=== PATIENT | female | born 1950 | race Caucasian/White ===

== ENCOUNTER 2019-10-14 00:40 | Outpatient (CLI) | payer OTHER, SELFPAY ==
[2019-10-14 18:42] LABS: SARS-CoV-2 RNA PCR Negative
== END 2019-10-14 00:41 | disposition home or self-care (01) ==
LOC: ANHCOVIDDT 00:40
PROVIDERS: PCP Family Medicine; Visit Provider Internal Medicine Gastroenterology
DX: Z01.812 Encounter for preprocedural laboratory examination (principal); Z20.828 Contact with and (suspected) exposure to other viral communicable diseases
CPT/HCPCS: 87635; C9803; U0003

== ENCOUNTER 2019-10-16 01:29 | Day surgery (SDC) | payer OTHER, SELFPAY ==
[2019-10-07 15:08] VITALS: BMI 15.4
--- NOTE | 2019-10-16 08:02 | WPDANESEPPF ---
Anes - Initial Pre Proc Eval Procedure: Operation Date: 10/16/19 08:30 Proposed Procedures p Screening Colonoscopy - Fernando Jimenez MD Date/Time: 10/16/19 08:02 Surgeon: Fernando Jimenez MD Pre Op Diagnosis: neoplasm screening Patient Data Age: 69 Gender: F Height: 5 ft 5 in Weight: 42 kg Allergies Allergy/AdvReac Type Severity Reaction Status Date / Time lisinopril Allergy Unknown Headache Verified 10/16/19 07:48 Home Medications Medication Instructions Recorded Confirmed Type fluticasone propionate 50 1 spray NASAL DAILY 01/06/19 10/16/19 History mcg/actuation nasal spray,suspension losartan 25 mg tablet 25 mg PO DAILY #90 tablet 03/19/19 10/16/19 Rx albuterol sulfate 90 mcg/actuation 2 puff INHALATION Q4-6H PRN #8.5 gm 04/13/19 10/16/19 Rx aerosol inhaler fluticasone furoate 100 1 inhalation INHALATION DAILY #60 08/18/19 10/16/19 Rx mcg-vilanterol 25 mcg/dose each inhalation powder Patient hx anesthesia problems: none Family hx anesthesia problems: none PMFSH Past Medical History Medical History (Updated 07/21/19 @ 10:07 by Lakia Miller PA-C) COPD (chronic obstructive pulmonary disease) HLD (hyperlipidemia) HTN (hypertension), benign Family History Family History (Updated 11/11/17 @ 11:53 by DOCTOR UNKNOWN) Father Family history of suicide Mother Cerebrovascular accident Family history of malignant neoplasm of stomach Sibling Family history of coronary artery disease Acute myocardial infarction Social History Social History (Updated 01/06/19 @ 11:14 by Adelina Shrestha) Smoking status: Former smoker Tobacco type: cigarettes Second hand tobacco smoke exposure: No Smoking end date: 03/04/02 Alcohol intake: current Drinks per week: 10 Substance use: never Substance use type: does not use Gender identity (if verbalized by the patient): Female Anes - Eval Final PreProcedure Day of Procedure 10/16/19 08:02 Patient weight: normal Heart: regular rate and rhythm Lungs: clear to auscultation Airway: Mallampati scale class II Neurological: alert and oriented Last oral intake: >/= 8 hours ASA classification: II Emergent: no Anesthetic plan: proceed Anesthesia type and monitoring: general and standard monitoring Informed Consent: The patient's anesthetic plan and its attendant risks and benefits were discussed with the patient/family/POA. Questions were solicited and answers provided to the satisfaction of the patient/family/POA.
[2019-10-16] MEDS: LACTATED RINGERS 1,000 ML 150 ML IV CONT (08:09)
[2019-10-16 08:10] VITALS: BP 131/98; PULSE 103; RESP 20; TEMP 36.8; O2SAT 95
--- NOTE | 2019-10-16 08:22 | PM.HPGS ---
History of Present Illness History of Present Illness Consent: Risks, benefits, and alternatives have been discussed and questions answered. Patient agrees to proceed with procedure. Chief complaint: neoplasm screening Narrative: Jazmin Askew is a 69 year old female with lower abdominal pain and positive cologuard, never had colonoscopy. Review of Systems Constitutional: Constitutional: Denies headache(s) and Denies weakness Eyes: Eyes: Denies blurry vision ENT: Reports Normal hearing present, Denies headache(s) and Denies neck pain Cardiovascular: Cardiovascular: Denies chest pain and Denies dyspnea Respiratory: Respiratory: Denies dyspnea Gastrointestinal: Gastrointestinal: Reports no additional gastrointestinal complaints Genitourinary: Genitourinary: Denies dysuria Musculoskeletal: Musculoskeletal: Denies neck pain Integumentary/Breasts: Skin/Breast: Denies dry skin Neurologic: Reports Normal hearing present, Denies headache(s) and Denies weakness Psychiatric: Psychiatric: Denies anxiety Endocrine: Endocrine: Denies change in body appearance Hematologic/Lymphatic: Hematologic/Lymphatic: Denies easy bleeding Allergic/Immunologic: Allergic/Immunologic: Denies urticaria PMFSH Past Medical History Medical History (Updated 10/16/19 @ 08:23 by Fernando Jimenez MD) COPD (chronic obstructive pulmonary disease) HLD (hyperlipidemia) HTN (hypertension), benign Lower abdominal pain Positive colorectal cancer screening using Cologuard test Family History Family History (Updated 11/11/17 @ 11:53 by DOCTOR UNKNOWN) Father Family history of suicide Mother Cerebrovascular accident Family history of malignant neoplasm of stomach Sibling Family history of coronary artery disease Acute myocardial infarction Social History Social History (Updated 01/06/19 @ 11:14 by Adelina Shrestha) Smoking status: Former smoker Tobacco type: cigarettes Second hand tobacco smoke exposure: No Smoking end date: 03/04/02 Alcohol intake: current Drinks per week: 10 Substance use: never Substance use type: does not use Gender identity (if verbalized by the patient): Female Meds Home Medications and Allergies Home Medications Medication Instructions Recorded Confirmed Type fluticasone propionate 50 1 spray NASAL DAILY 01/06/19 10/16/19 History mcg/actuation nasal spray,suspension losartan 25 mg tablet 25 mg PO DAILY #90 tablet 03/19/19 10/16/19 Rx albuterol sulfate 90 mcg/actuation 2 puff INHALATION Q4-6H PRN #8.5 gm 04/13/19 10/16/19 Rx aerosol inhaler fluticasone furoate 100 1 inhalation INHALATION DAILY #60 08/18/19 10/16/19 Rx mcg-vilanterol 25 mcg/dose each inhalation powder Allergies Allergy/AdvReac Type Severity Reaction Status Date / Time lisinopril Allergy Unknown Headache Verified 10/16/19 07:48 Vital Signs Vital Signs - 24 hr 10/16/19 08:10 Temperature 98.3 F Pulse Rate 103 H Respiratory Rate 20 Blood Pressure 131/98 H Pulse Oximetry 95 Exam Const: General: comfortable and no acute distress HENMT: General nose exam: Normal nares present Eyes: General: appearance normal, both eyes and all related structures Neck: Neck: no JVD Resp: Auscultation: clear to auscultation bilaterally Cardio: Rate: regular rate Rhythm: regular rhythm GI: Inspection: non-distended GI Palp: Yes Soft to palpation Skin: General skin exam: normal color Neuro: General: gait normal Speech: normal speech Extrem: General: normal to inspection Psych: Mental Status: mental status grossly normal Assessment and Plan Assessment and plan (1) Positive colorectal cancer screening using Cologuard test: Code(s): R19.5 - Other fecal abnormalities Status: Acute Assessment and Plan: will proceed with colonoscopy (2) Lower abdominal pain: Code(s): R10.30 - Lower abdominal pain, unspecified
--- NOTE | 2019-10-16 08:40 | SUR.OPER ---
NS INJECTED INTO ASCENDING COLON TISSUE LOT#[id number] 6 ML USED RESOLUTION CLIPS LOT# [id number] EXP 08/10/22 APPLIED TO POLYPECTOMY AREA IN ASCENDING COLON TIMES TWO
--- NOTE | 2019-10-16 08:52 | SUR.OPER ---
NS INJECTED INTO DISTAL ASCENDING COLON WITH 3 ML LOT # [id number]
[2019-10-16 09:13] VITALS: BP 104/58; PULSE 91; RESP 25; O2SAT 93
[2019-10-16 09:23] VITALS: BP 111/68; PULSE 85; RESP 25; O2SAT 97
[2019-10-16 09:33] VITALS: BP 118/73; PULSE 81; RESP 15; O2SAT 99
== END 2019-10-16 09:46 | disposition home or self-care (01) ==
PROVIDERS: PCP Family Medicine; Visit Provider Internal Medicine Gastroenterology
PROC: 0DJD8ZZ Inspection of Lower Intestinal Tract, Via Natural or Artificial Opening Endoscopic (ICD-10-PCS; CPT 45378; principal; 2019-10-16 08:30)
DX: Z12.11 Encounter for screening for malignant neoplasm of colon (principal); D12.2 Benign neoplasm of ascending colon; K63.5 Polyp of colon; K57.30 Diverticulosis of large intestine without perforation or abscess without bleeding; K64.8 Other hemorrhoids; I10 Essential (primary) hypertension; J44.9 Chronic obstructive pulmonary disease, unspecified; E78.5 Hyperlipidemia, unspecified; Z87.891 Personal history of nicotine dependence; Z79.51 Long term (current) use of inhaled steroids; Z85.72 Personal history of non-Hodgkin lymphomas
CPT/HCPCS: 45385; 45381; 88305; J2704; J7120

== ENCOUNTER 2019-10-23 07:34 | Outpatient (CLI) | payer OTHER, SELFPAY ==
--- NOTE | ~2019-10-23 | US_ITS ---
EXAMINATION: US right upper quadrant DATE: 10/23/2019 08:19 INDICATION: Abdominal pain and weight loss TECHNIQUE: Multiple grayscale and Doppler ultrasound images of the abdomen were obtained. COMPARISON: None available FINDINGS: Bowel gas obscures visualization of the pancreas. The visualized portions of the pancreas a re unremarkable. The liver is normal with normal echogenicity and echotexture. No surface nodularity. Normal hepatopetal flow in the main portal vein. The gallbladder is normal with no abnormal wall thi ckening, pericholecystic fluid or stones. The common bile duct measures 7 mm, within normal limits fo r age. There was no sonographic Duggan sign. IMPRESSION: 1. Normal sonographic study of the gallbladder. Reviewed, dictated and finalized at location A.
== END 2019-10-23 07:35 | disposition home or self-care (01) ==
PROVIDERS: PCP Family Medicine; Visit Provider Family Medicine
DX: R10.9 Unspecified abdominal pain (principal)
CPT/HCPCS: 76705

== ENCOUNTER 2020-05-30 14:19 | Outpatient (CLI) | payer OTHER, SELFPAY ==
--- NOTE | ~2020-05-30 | XR_ITS ---
XR chest 2V 05/30/2020 14:42 Indication: Shortness of breath Procedure: PA and lateral views of the chest Comparison: No prior studies for comparison. Findings: Heart size normal. No focal air space disease, pulmonary edema, pleural effusion or suspect ed pneumothorax. The lungs are hyperinflated which is consistent with, but not diagnostic of chronic obstructive pulmonary disease. There is scarring in the right upper lobe. Impression: 1: No acute cardiopulmonary disease. Reviewed, dictated and finalized at location B. Impression: 1: No acute cardiopulmonary disease.
== END 2020-05-30 14:20 | disposition home or self-care (01) ==
PROVIDERS: PCP Family Medicine; Visit Provider Nurse Practitioner Family
DX: R06.02 Shortness of breath (principal)
CPT/HCPCS: 71046

== ENCOUNTER 2020-09-22 15:26 | Outpatient (CLI) | payer OTHER, SELFPAY ==
--- NOTE | ~2020-09-22 | MM_ITS ---
EXAMINATION: MM screening lexy BI w travis HISTORY: Screening TECHNIQUE: Craniocaudal and mediolateral oblique 3-D tomosynthesis images were obtained and synthetic 2-D images were generated. CAD analysis was submitted and interpreted. COMPARISON: Comparison to multiple prior studies sequentially, with oldest reviewed study dated 06/13. BREAST PARENCHYMAL COMPOSITION: The breasts are heterogeneously dense, which may obscure small masses . FINDINGS: Stable right breast asymmetry and bilateral breast calcifications. There is no evidence of suspicious mass, calcification, or architectural distortion to suggest malignancy in either breast. T here has been no suspicious interval change. IMPRESSION: 1. No mammographic evidence of malignancy. 2. Recommend routine screening mammography in one year. BI-RADS Category 2: Benign finding(s). Reviewed, dictated and finalized at location A.
== END 2020-09-22 15:27 | disposition home or self-care (01) ==
LOC: ANHIMG 15:29
PROVIDERS: PCP Family Medicine; Visit Provider Family Medicine
DX: Z12.31 Encounter for screening mammogram for malignant neoplasm of breast (principal)
CPT/HCPCS: 77063; 77067

== ENCOUNTER 2022-01-30 07:00 | Outpatient (NON) | payer OTHER, SELFPAY | END 2022-01-30 07:01 | disposition home or self-care (01) | PROVIDERS: PCP Family Medicine; Visit Provider Nurse Practitioner | DX: L72.0 Epidermal cyst (principal) | CPT/HCPCS: 88305 ==

== ENCOUNTER 2023-07-25 13:45 | Outpatient (CLI) | payer MEDICARE, SELFPAY ==
--- NOTE | ~2023-07-25 | XR_ITS ---
XR ankle RT min 3V DATE: 07/25/2023 14:12 INDICATION: Right ankle pain TECHNIQUE: 4 views COMPARISON: None FINDINGS: There is mild lateral soft tissue swelling of the ankle. No fracture or dislocation of the ankle or disruption of the ankle mortise. No periosteal reaction or bone destruction. IMPRESSION: Mild lateral soft tissue swelling; no significant bony abnormality Reviewed, dictated and finalized at location B.
== END 2023-07-25 13:46 | disposition home or self-care (01) ==
LOC: ANHIMG 13:48
PROVIDERS: PCP Family Medicine; Visit Provider Physician Assistant Medical
DX: M25.471 Effusion, right ankle (principal)
CPT/HCPCS: 73610

== ENCOUNTER 2023-10-28 07:56 | Outpatient (CLI) | payer MEDICARE, SELFPAY ==
--- NOTE | ~2023-10-28 | DEXA_ITS ---
Bone Density Report Name: ALETA HORTON Age: 73 Sex: Female Ethnicity: White Date of : 1950 Indication: osteopenia; asthma or emphysema; Referring Provider: DAVID CADET Study: Bone densitometry was performed. Exam Date: October 28, 2023 Accession number: [id number] Bone Density: Region BMD T-score Z-score Classification AP Spine(L1-L4) 0.768 -2.5 -0.2 Osteoporosis Femoral Neck (Left) 0.638 -1.9 0.2 Osteopenia Total Hip (Left) 0.625 -2.6 -0.8 Osteoporosis Femoral Neck (Right) 0.623 -2.0 0.0 Osteopenia Total Hip (Right) 0.607 -2.7 -1.0 Osteoporosis Total Hip Mean 0.616 -2.7 -0.9 Osteoporosis World Health Organization criteria for BMD impression classify patients as: Normal (T-score at or above -1.0), Osteopenia (T-score between -1.0 and -2.5), or Osteoporosis (T-score at or below -2.5). 10-year Fracture Risk: FRAX not reported because: Some T-score for Spine Total or Hip Total or Femoral Neck at or below -2.5 Previous Exams: Region Exam Age BMD T-score BMD Change BMD Change Date g/cm2 vs Baseline vs Previous AP Spine (L1-L4) 10/28/2023 73 0.768 -2.5 -0.015 (-1.9%) -0.013 (-1.7%) 12/22/2018 68 0.781 -2.4 -0.002 (-0.2%) -0.002 (-0.2%) 06/08/2016 66 0.783 -2.4 Total Hip(Left) 10/28/2023 73 0.625 -2.6 -0.058 (-8.5%) -0.088 (-12.4% 12/22/2018 68 0.713 -1.9 0.030 (4.4%)* 0.030 (4.4%)* 06/08/2016 66 0.683 -2.1 Total Hip(Right) 10/28/2023 73 0.607 -2.7 -0.018 (-2.9%) -0.110 (-15.3% 12/22/2018 68 0.717 -1.8 0.092 (14.8%)* 0.092 (14.8%)* 06/08/2016 66 0.624 -2.6 *Denotes significance at 95% confidence level, LSC for AP Spine = 0.022 g/cm2, LSC for Total Hip = 0.027 g/cm2 Clinical Information Provided by Patient: Has the following medical conditions: Asthma or Emphysema Patient maximum height was 65.0 Menopause Age: 52 Drinks caffeinated beverages Onset of menses at age 13 Number of children 3 Impression: The patient has osteoporosis, based on the Right Total Hip T-score. The BMD for the Total Hip(Left) decreased, changing by -12.4% since the last DXA exam. The BMD for the Total Hip(Right) decreased, changing by -15.3% since the last DXA exam. Discussion: INCREASED RISK OF FRACTURE. BONE DENSITY IS UNDESIRABLY LOW AT ONE OR MORE SKELETAL SITES, CONSISTENT WITH POSTMENOPAUSAL OSTEOPOROSIS. This patient's lowest T-score meets the World Health Organization's (WHO) criteria for osteo
--- NOTE | ~2023-10-28 | MM_ITS ---
EXAMINATION: MM screening lexy BI w travis HISTORY: Screening TECHNIQUE: Craniocaudal and mediolateral oblique 3-D tomosynthesis images were obtained and synthetic 2-D images were generated. CAD analysis was submitted and interpreted. COMPARISON: Comparison to multiple prior studies sequentially, with oldest reviewed study dated 01/02. BREAST PARENCHYMAL COMPOSITION: Dense: The breasts are heterogeneously dense, which may obscure small masses FINDINGS: Bilateral breast asymmetries are stable. No significant new suspicious masses, calcificatio ns or architectural distortion in either breast to suggest malignancy. IMPRESSION: 1. No mammographic evidence of malignancy. 2. Recommend routine screening mammography in one year. BI-RADS Category 2: Benign finding(s). Reviewed, dictated and finalized at location B.
== END 2023-10-28 07:57 | disposition home or self-care (01) ==
LOC: ANHIMG 08:00
PROVIDERS: PCP Family Medicine; Visit Provider Family Medicine
DX: Z12.31 Encounter for screening mammogram for malignant neoplasm of breast (principal); M81.0 Age-related osteoporosis without current pathological fracture; M85.89 Other specified disorders of bone density and structure, multiple sites; Z78.0 Asymptomatic menopausal state
CPT/HCPCS: 77063; 77067; 77080

== ENCOUNTER 2024-04-08 10:08 | Outpatient (CLI) | payer MEDICARE, SELFPAY ==
--- NOTE | ~2024-04-08 | XR_ITS ---
Cervical Spine: AP, lateral, open-mouth views Clinical History: Pain Findings: No acute fracture seen. There is grade 1 retrolisthesis of C5 over C6. There is moderate to advanced degenerative disc narrowing at C5-C6 and C6-C7. There is moderate to advanced facet arthrop athy in the cervical spine. Pre-vertebral soft tissues are unremarkable. Impression: Degenerative spondylosis, as detailed above. Reviewed, dictated and finalized at location M. AT[facility] LEAD Impression: Degenerative spondylosis, as detailed above.
--- OUTSIDE RECORDS SUMMARY | 2024-04-08 11:13 | XMS_ITS | Clinical Summary ---
Author Organization [facility] Address [address] [place] [id number] Care Team Providers Care Solar Installation Technician Name Role Phone Lb Munoz MD Primary Care Provider Allergies Active Allergy Reactions Criticality Noted Date Comments Aspirin 11/28/1994 Ibuprofen 11/28/1994 Immunizations Immunization Administration Dates Next Due Covid-19, Mrna, Lnp-s, Pf, 30 Mcg/0.3 Ml Dose (P vladislav) 12/17/2020 Social History Tobacco Use Types Packs/Day Years Used Date Smoking Tobacco: Never Assessed Comments Unknown Sex and Gender Information Value Date Recorded Sex Assigned at Not on file 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 Gender Identity Not on file Sexual Orientation Not on file Plan of Treatment Health Maintenance Due Date Last Done Comments DEXA Bone Density 1950 Hepatitis C Virus (HCV) Screening 1950 TdaP Immunization 1950 Colonoscopy 1994 Colorectal Cancer Screening 1994 Cologuard 1999 Immunochemical Fecal Occult Blood 1999 Mammogram 1999 Zoster Immunization (1 of 2) 1999 Pneumococcal Immunization (50+ years) (3 of 3 - PCV20 or PCV21) 01/06/2023 01/06/2018, 02/20/2012 Influenza Immunization (#1) 2023 100 10/2018, 12/10/2017, 12/11/2016, Additional history exists SARS-COV-2 Immunization ( season) 2023 12/17/2020, 06/15/2020, 05/18/2020 Respiratory Syncytial Virus (RSV) Immunization (Adult) (1 - 1-dose 75+ series) 2024 Pneumococcal Immunization Combined Discontinued 01/06/2018, 02/20/2012 Hepatitis B Immunization Aged Out No longer eligible based on patient's age to complete this topic Meningococcal Immunization (ACWY) Aged Out No longer eligible based on patient's age to complete this topic Rotavirus Immunization Aged Out No lo nger eligible based on patient's age to complete this topic Care Teams Solar Installation Technician Relationship Specialty Start Date End Date Lb Munoz MD [address] [place] [address] PCP - General Family Medicine 11/22/17
--- OUTSIDE RECORDS SUMMARY | 2024-04-08 11:13 | XMS_ITS | Clinical Summary ---
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
--- OUTSIDE RECORDS SUMMARY | 2024-04-08 11:13 | XMS_ITS | Referral Summary ---
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
== END 2024-04-08 10:09 | disposition home or self-care (01) ==
PROVIDERS: PCP Family Medicine; Visit Provider Physician Assistant Medical
DX: M47.812 Spondylosis without myelopathy or radiculopathy, cervical region (principal)
CPT/HCPCS: 72040

== ENCOUNTER 2024-12-02 08:31 | Outpatient (CLI) | payer MEDICARE, SELFPAY ==
--- OUTSIDE RECORDS SUMMARY | 2024-12-02 08:44 | XMS_ITS | Clinical Summary ---
Author Organization [facility] Address [address] [place] [address] Care Team Providers Care Commercial Hvac Service Technician Name Role Phone Lb Munoz MD Primary Care Provider Allergies Active Allergy Reactions Criticality Noted Date Comments Aspirin 11/28/1994 Ibuprofen 11/28/1994 Immunizations Immunization Administration Dates Next Due Covid-19, Mrna, Lnp-s, Pf, 30 Mcg/0.3 Ml Dose (P priyazer) 12/17/2020 Social History Tobacco Use Types Packs/Day Years Used Date Smoking Tobacco: Never Assessed Comments Unknown Sex and Gender Information Value Date Recorded Sex Assigned at Not on file 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 Gender Identity Not on file Sexual Orientation Not on file Plan of Treatment Health Maintenance Due Date Last Done Comments Hepatitis C Virus (HCV) Screening 1950 TdaP Immunization 1950 Cologuard 1994 Colonoscopy 1994 Colorectal Cancer Screening 1994 Immunochemical Fecal Occult Blood 1994 Zoster Immunization (1 of 2) 1999 Pneumococcal Immunization (50+ years) (3 of 3 - PCV20 or PCV21) 01/06/2023 01/06/2018, 02/20/2012 Respiratory Syncytial Virus (RSV) Immunization (Adult) (1 - 1-dose 75+ series) 2024 Influenza Immunization (#1) 2024 10/0 10/2018, 12/10/2017, 12/11/2016, Additional history exists SARS-COV-2 Immunization (2024- season) 2024 12/17/2020, 06/15/2020, 05/18/2020 Pneumococcal Immunization Combined Discontinued 01/06/2018, 02/20/2012 Hepatitis B Immunization Aged Out No longer eligible based on patient's age to complete this topic Human Papillomavirus (HPV) Immunization Aged Out No longer eligible based on patient's age to complete this topic Meningococcal Immunization (ACWY) Aged Out No longer eligible based on patient's age to complete this topic Rotavirus Immunization Aged Out No lo nger eligible based on patient's age to complete this topic Care Teams Commercial Hvac Service Technician Relationship Specialty Start Date End Date Lb Munoz MD [address] [place] [address] PCP - General Family Medicine 11/22/17
--- OUTSIDE RECORDS SUMMARY | 2024-12-02 08:44 | XMS_ITS | Clinical Summary ---
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
[2024-12-02 08:55] VITALS: PULSE 90; O2SAT 94
[2024-12-02 09:00] VITALS: PULSE 101; O2SAT 86
[2024-12-02 09:05] VITALS: PULSE 102; O2SAT 88
[2024-12-02 09:10] VITALS: PULSE 105; O2SAT 91
[2024-12-02 09:25] VITALS: PULSE 91; O2SAT 94
--- NOTE | 2024-12-02 10:40 | HOMEO2EVAL ---
Evaluation was performed at [facility] Home Oxygen Evaluation RC: Home Oxygen (O2) Evaluation Start: 12/02/24 10:37 Freq: Status: Active Protocol: RPE Activity Type Activity Date Activity User E-sign Co-sign Detail Recorded Client Recorded Date Recorded By Document 12/02/24 08:55 [email or web address] [email or web address] 12/02/24 10:40 DJO Document 12/02/24 09:00 [email or web address] [email or web address] 12/02/24 10:40 DJO Document 12/02/24 09:05 [email or web address] [email or web address] 12/02/24 10:40 DJO Document 12/02/24 09:10 [email or web address] [email or web address] 12/02/24 10:40 DJO Document 12/02/24 09:25 [email or web address] [email or web address] 12/02/24 10:40 DJO 12/02/24 12/02/24 12/02/24 08:55 09:00 09:05 Home O2 Evaluation [Oxygen] -Test Phase Resting Exercise Exercise -Oxygen Delivery Room Air Room Air Nasal Cannula -Oxygen Flow Rate (L/min) 1 [Pulse Oximetry] -Pulse Oximetry (90-100 %) 94 86 L 88 L [Pulse Rate] -Pulse Rate (60-100 beats/min) 90 101 H 102 H [Evaluation] -Activity Tolerance [Exercise] -Ambulation Distance (feet) -Ambulation Distance (meters) [Charges] -Evaluation Charges O2 Evaluation by Pulmonary 12/02/24 12/02/24 09:10 09:25 Home O2 Evaluation [Oxygen] -Test Phase Exercise Resting -Oxygen Delivery Nasal Cannula Room Air -Oxygen Flow Rate (L/min) 2 [Pulse Oximetry] -Pulse Oximetry (90-100 %) 91 94 [Pulse Rate] -Pulse Rate (60-100 beats/min) 105 H 91 [Evaluation] -Activity Tolerance Good [Exercise] -Ambulation Distance (feet) 600 -Ambulation Distance (meters) 182.87 [Charges] -Evaluation Charges
== END 2024-12-02 08:32 | disposition home or self-care (01) ==
LOC: ANHPFT 08:34
PROVIDERS: PCP Family Medicine; Visit Provider Family Medicine
DX: J44.9 Chronic obstructive pulmonary disease, unspecified (principal)
CPT/HCPCS: 94618